=== PATIENT | female | born 1995 | race Caucasian/White ===

== ENCOUNTER 2024-04-09 12:03 | Emergency (ER) | payer MEDICAID, SELFPAY ==
[2024-04-09 12:04] VITALS: BP 114/84; PULSE 112; RESP 16; TEMP 36.7; O2SAT 99
[2024-04-09 12:07] VITALS: BMI 24.3
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
[2024-04-09 13:47] VITALS: BP 125/86; PULSE 101; RESP 16; TEMP 36.3; O2SAT 97
== END 2024-04-09 13:50 | disposition home or self-care (01) ==
PROVIDERS: Emergency Provider Emergency Medicine; PCP Nurse Practitioner Family; Visit Provider Emergency Medicine
DX: O9A.211 Injury, poisoning and certain other consequences of external causes complicating pregnancy, first trimester (principal); Z87.891 Personal history of nicotine dependence; Z3A.09 9 weeks gestation of pregnancy; S00.81XA Abrasion of other part of head, initial encounter; S10.91XA Abrasion of unspecified part of neck, initial encounter; Y04.0XXA Assault by unarmed brawl or fight, initial encounter
CPT/HCPCS: 99283